=== PATIENT | female | born 2000 | race Caucasian/White ===

== ENCOUNTER 2023-09-28 03:16 | Emergency (ER) | payer OTHER, SELFPAY ==
[2023-09-28 03:20] VITALS: BP 121/86
--- NOTE | 2023-09-28 03:36 | ED.GENMED ---
History of Present Illness
General
Chief Complaint: Overdose Unintentional
Source: patient
Exam Limitations: none
Time Seen by Provider: 09/28/23 03:24
Nursing documentation reviewed up to this point in time: agreed with
Travel History
Have you had any contact with someone who has COVID-19?: No
Do you have any symptoms of coronavirus? Fever > 100 degrees, chills, cough, shortness of breath, sore throat, loss of taste or smell, muscle aches, or headache?: No
History of Present Illness
History of Present Illness:
This is a 22-year-old female who admits to drinking alcohol tonight while she was out with friends. Her roommates left the bar prior to patient eventually leaving. She did Uber home and remembers the ride home. [place], prior to leaving the bar
patient admits to feeling 'quite out of it' she states she has been feeling disconnected, nauseous, intermittent dry heaves. She does not believe she drank enough alcohol to be this intoxicated and she is concerned that something was slipped into
her drink. She denies being alone at any time while at the bar, she does not believe her drink was left unattended. She denies loss of consciousness, denies fall, and has full recollection of her Uber ride home.
She did return home around 2:30 in the morning and admits to feeling improved, more awake and more coherent currently but continues with moderate nausea and dry heaves.
She denies frequent alcohol consumption but believes she has consumed more alcohol than this in the past without similar effect.
Her only daily medication is spironolactone and vitamins. She denies risk of , last menstrual period September 12.
Past History
Past History
ED Past Medical History: Other (Endometriosis)
ED Past Surgical History: Gynecological (Laparoscopy for endometriosis)
Social History
Tobacco: Non-smoker
Alcohol: Occasional
Drug: None
Personal: Single
Living: with roommate
Employment: Student
Family History
Family History: Other (Noncontributory)
Phy Exam
Physical Exam
Physical Exam:
GENERAL: 22-year-old female appears her stated age, awake and alert, pleasant, easily communicative and appears in no acute distress. 2 roommates are accompanying
EYE: pupils equal and reactive. anicteric. The head is normocephalic, atraumatic.
NECK: Supple, nontender, no meningismus, no significant adenopathy.
ENT: oral mucosa is moist. No rhinorrhea.
CARDIAC: Regular rate and rhythm. no murmur.
LUNGS: Clear breath sounds bilaterally, no acute respiratory distress, no wheezes/rales/rhonchi
ABDOMEN: Soft, nondistended, without focal tenderness, normoactive BS.
NEUROLOGICAL: Alert and oriented x3, no focal neuro deficits.
SKIN: Warm and dry, normal color, skin intact. No rash.
MUSCULOSKELETAL: No C/C/E. peripheral pulses are full and equal b/l. No palpable tenderness.
PSYCH: Normal and appropriate interaction.
Course
Orders/Labs/Results
Orders:
Orders
09/28/23 03:33
0.9% Sodium Chloride 1000 ml [Nss] 1,000 ml IV BOLUS
Ondansetron Injectable [Zofran] 4 mg IV NOW STA
Test Result ONCE
09/28/23 03:50
Alcohol Urgent
Comprehensive Metabolic Panel Urgent
HCG, Serum Qualitative Screen Urgent
09/28/23 04:30
Urine Drug Abuse Screen Urgent
Date Specimen was Collected: 09/28/23
Time Specimen was Collected: 03:55
Abnormal Lab Results
09/28/23
03:50
Total Protein 8.5 H g/dl
(6.3-8.2)
Albumin 5.2 H g/dl
(3.5-5.0)
09/28/23 03:50
Vital Signs
Initial and Last Documented VS:
Initial Vital Signs
Temp Pulse Resp BP Pulse Ox
98.4 F 119 16 121/86 100
09/28/23 03:20 09/28/23 03:20 09/28/23 03:20 09/28/23 03:20 09/28/23 03:20
Last Documented Vital Signs
Temp Pulse Resp BP Pulse Ox
98.4 F 119 16 121/86 100
09/28/23 03:20 09/28/23 03:20 09/28/23 03:20 09/28/23 03:20 09/28/23 03:20
MDM/Problems Addressed
Differential Diagnosis Includes:
I highly suspect alcohol intoxication as cause for the patient's symptoms.
Less likely nefarious/unintentional ingestion�poisoning.
Will give a dose of Zofran for nausea and initiate IV fluids. Will check alcohol level as well as UDS.
*Pulse Oximetry
Patient hypoxic: no
*Bowling Ball Finisher Interpretation
Rate: normal
Interpretation: normal
Rhythm: sinus
*Critical Care Note
Total Time (30-74mins, 75-104mins- exclusive of procedures): Not Applicable
Update Note
Update Note:
09/28/2023 0457 AM
Patient feeling improved after IV fluids and IV Zofran. No further nausea. Sleeps when undisturbed but easily arousable and once awake she is bright and alert, easily communicative, oriented x 3.
Labs show elevated alcohol level of 227.
UDS is negative.
Chemistries are unremarkable.
Highly suspect acute alcohol intoxication as cause for patient's symptoms.
Recommend she avoid any further alcohol consumption at least over the next several days and otherwise stay well-hydrated on a daily basis.
Follow-up with primary care physician as needed.
Will discharge to the care of her 2 roommates.
ED Attending Note
-
Portions of this chart may have been created with voice recognition software.� Occasional wrong word or��sound alike� substitutions may have occurred due to the inherent limitations of voice recognition software.
Discharge Plan
Departure
Patient Disposition: Home (Routine Discharge)
Date of Disposition: 09/28/23
Time of Disposition: 04:56
Patient with high blood pressure during this ER visit?: No
Condition: Good
Discharge Problem:
Acute alcohol intoxication
Instructions: Alcohol Intoxication ED
Prescriptions:
No Action
Control
1 tab PO DAILY
spironolactone 100 mg Tablet
100 mg PO DAILY
Referrals:
Lucy Do PA-C [Family Provider] - As needed
Interventions
Interventions:
*Risk Screen - Suicide Last Done: 09/28/23 03:20
*General Assessment Last Done: 09/28/23 03:20
*Neglect/Abuse Screening Last Done: 09/28/23 03:20
ED- Fall Risk Assessment Last Done: 09/28/23 03:56
ED- Cardiac Assessment Last Done: 09/28/23 03:56
ED- Neurological Assessment Last Done: 09/28/23 03:56
ED-Psychological Assessment Last Done: 09/28/23 03:56
ED- Pulmonary Assessment Last Done: 09/28/23 03:56
[2023-09-28] MEDS: NSS 1000 IV (03:48)
[2023-09-28] MEDS: ZOFRAN 4 MG IV (03:48)
[2023-09-28 03:49] VITALS: BMI 20.2
[2023-09-28 04:17] LABS: HCG, Serum Qualitative Screen Negative
[2023-09-28 04:22] LABS: ALT (SGPT) 32 U/L (0-35); AST (SGOT) 32 U/L (14-36); Albumin 5.2 g/dl (3.5-5.0); Alcohol 227 mg/dl; Alkaline Phosphatase 72 U/L (38-126); Blood Urea Nitrogen 8 mg/dl (7-17); Calcium 9.5 mg/dl (8.4-10.2); Carbon Dioxide 23 mmol/L (22-30); Chloride 105 mmol/L (98-107); Estimated Creatinine Clearance 104 ml/min; Glucose 97 mg/dl (70-99); Potassium 3.7 mmol/L (3.5-5.1); Sodium 139 mmol/L (135-145); Total Bilirubin 0.7 mg/dl (0.2-1.3); Total Protein 8.5 g/dl (6.3-8.2); eGFR > 60.00
[2023-09-28 04:48] LABS: Amphetamines Negative (Negative); Barbiturates Negative (Negative); Benzodiazepines Negative (Negative); Buprenorphine Negative (Negative); Cocaine Negative (Negative); Marijuana Negative (Negative); Methadone Negative (Negative); Methamphetamines Negative (Negative); Opiates Negative (Negative); Phencyclidine Negative (Negative); Tricyclic Antidepressants Negative (Negative)
[2023-09-28 05:10] VITALS: BP 91/65
== END 2023-09-28 05:10 | disposition home or self-care (01) ==
LOC: EMR 03:16
PROVIDERS: EMERGENCY PHYSICIAN Emergency Medicine; FAMILY PHYSICIAN Physician Assistant Medical
DX: F10.129 Alcohol abuse with intoxication, unspecified (principal); Z79.899 Other long term (current) drug therapy
CPT/HCPCS: 99283; 96374; 96361; 80053; 80306; 82077; 84703

== ENCOUNTER → 2024-06-14 08:29 | Outpatient (REF) | payer OTHER, SELFPAY | LOC: MRI 3T 08:29 | PROVIDERS: ATTENDING PHYSICIAN Obstetrics & Gynecology; FAMILY PHYSICIAN Physician Assistant Medical | DX: N80.9 Endometriosis, unspecified (principal) | CPT/HCPCS: 72197; A9575 ==